=== PATIENT | male | born 1965 | race Caucasian/White ===

== ENCOUNTER 2019-01-25 09:12 | Day surgery (SDC) | payer BC, SELFPAY ==
--- NOTE | 2019-01-25 06:41 | W.COLOREPORT ---
Date of service: 01/25/19 Time of Service: 10:33 Colonoscopy Report Date of procedure: 01/25/19 Pre-op diagnosis general: Colon Cancer Screening Post-op diagnosis procedure note: other (ascending polyp and sigmoid polyp) Procedure: Colonoscopy with polypectomy by cold forceps and hot snare Surgeon: Kasey Galicia Anesthesia proc note operative: other (General/ Claudia Thompson, DIRECTOR INTEGRATED/ ASA 2) Estimated blood loss (mL): 5 Pathology: other (sigmoid polyp and ascending polyp) Complications: None Disposition: same day Indications: Mrs. Alcala is a pleasant 53 year old female who was seen in the office for a screening colonoscopy. Risks, benefits and complications have been reviewed. Complications include but are not limited to bleeding, pain, perforation, missed small lesion/polyp, sore throat, aspiration and adverse reaction to the medications. Questions were entertained and answered to their satisfaction and they wished to proceed. No guarantees were given or implied. Prep: Miralax/Dulcolax Procedure Start Time: :33 Procedure End Time: 11:25 Retraction Time: 34 minutes Findings: Large sigmoid polyp at 25 cm measuring about 1 cm Small ascending polyp Procedure Description: After informed consent was obtained the patient was taken to the procedure room and placed in a left decubitous position. Monitors were applied and a time out was done. The patients name, date of , procedure, allergies to medications and metal in their body was reviewed. The patient was then sedated. Once sedated and comfortable a rectal exam was done. External exam was normal. Internal exam revealed a normal sphincter tone and no palpable masses. The scope was then introduced and retro-flexed. No internal hemorrhoids were identified. The scope was then advanced to the cecum with difficulty due to a very tortuous colon. The TI and appendiceal orifice were identified. The prep was suboptimal in the right colon. 1 L of NS was used to wash the bile from the mucosa. The scope was then slowly retracted over 34 minutes back into the rectum. Polyps were removed in the ascending colon with cold forceps and in the sigmoid colon with hot snare. The polyp in the sigmoid colon was pedunculated and measured 1 cm. The mucosa was tattooed. The scope was removed and the patient was woken up and taken back to Same day surgery in stable condition. The patient tolerated the procedure well and there were no immediate complications. Follow up: Follow up pending final diagnoses.
--- NOTE | 2019-01-25 06:45 | COLE_ITS ---
Date of service: 01/25/19 Time of Service: 10:33 Colonoscopy Report Date of procedure: 01/25/19 Pre-op diagnosis general: Colon Cancer Screening Post-op diagnosis procedure note: other (ascending polyp and sigmoid polyp) Procedure: Colonoscopy with polypectomy by cold forceps and hot snare Surgeon: Kasey Galicia Anesthesia proc note operative: other (General/ Claudia Thompson, MERCHANDISE PLANNER/ ASA 2) Estimated blood loss (mL): 5 Pathology: other (sigmoid polyp and ascending polyp) Complications: None Disposition: same day Indications: Mrs. Alcala is a pleasant 53 year old female who was seen in the office for a screening colonoscopy. Risks, benefits and complications have been reviewed. Complications include but are not limited to bleeding, pain, perforation, missed small lesion/polyp, sore throat, aspiration and adverse enrique ction to the medications. Questions were entertained and answered to their satisfaction and they wished to proceed. No guarantees were given or implied. Prep: Miralax/Dulcolax Procedure Start Time: :33 Procedure End Time: 11:25 Retraction Time: 34 minutes Findings: Large sigmoid polyp at 25 cm measuring about 1 cm Small ascending polyp Procedure Description: After informed consent was obtained the patient was taken to the procedure room and placed in a left decubitous position. Monitors were applied and a time out was done. The patients name, date of , procedure, allergies to medications and metal in their body was reviewed. The patient was then sedated. Once sedated and comfortable a rectal exam was done. External exam was normal. Internal exam revealed a normal sphincter tone and no palpable masses. The scope was then introduced and retro-flexed. No internal hemorrhoids were identified. The scope was then advanced to the cecum with difficulty due to a very tortuous colon. The TI and appendiceal orifice were identified. The prep was suboptimal in the right colon. 1 L of NS was used to wash the bile from the mucosa. The scope was then slowly retracted over 34 minutes back into the rectum. Polyps were removed in the ascending colon with cold forceps and in the sigmoid colon with hot snare. The polyp in the sigmoid colon was pedunculated and measured 1 cm. The mucosa was tattooed. The scope was removed and the patient was woken up and taken back to Same day surgery in stable condition. The patient tolerated the procedure well and there were no immediate complica tions. Follow up: Follow up pending final diagnoses.
--- NOTE | 2019-01-25 06:45 | W.PM.DSUDISC ---
Discharge Plan Disposition Patient Disposition: HOME Condition: Good Discharge Details Reason For Visit: Colon Cancer Screening Attending Provider: Kasey Galicia Primary Care Provider: Nathaniel Cruz Home Meds and New Rx's Prescriptions: Continued naproxen sodium [Aleve] 220 MG tablet 220 mg PO PRN RF: 0 Discontinued bisacodyl [Dulcolax (bisacodyl)] 5 mg tablet,delayed release (DR/EC) 5 mg PO ONCE Qty: 4 RF: 0 polyethylene glycol 3350 17 gram/dose powder 255 g PO ONCE Qty: 255 RF: 0 Discharge Instructions Instructions: Colonoscopy (DC) Additional Instructions: Findings: 2 polyps Follow up: depends on final pathology results. I will call with results Please call if you develop: fevers >101.5 Nausea or Vomiting Abdominal pain that is not transient DAY SURGERY UNIT POST COLONOSCOPY INSTRUCTIONS 1. Because there will be medication in your system for the next 24 hours, you may feel a little sleepy. Your coordination will be affected. Therefore: a. Do not drive or operate dangerous equipment for 24 hours. b. Do not drink alcohol beverages for 24 hours (not even beer). c. Plan to go home and rest for the day. 2. Generally there are no restrictions on your activity after a day or so has gone by, but you may feel a bit fatigued for a few days. 3 After you arrive home you may have a light meal and return to a normal diet as you can tolerate it without feeling sick to your stomach. 4. After surgery, you may feel pain or discomfort. This should be only transient, but if it persists please contact your doctor. 5. If there are any questions regarding the findings of your procedure, please feel free to contact your doctor. 6. If you are unable to contact your doctor with a problem, contact the hospital at [phone]. 7. Continue all your regular medications unless directed otherwise. I understand the above instructions and have no questions. Signature of Patient or Responsible Adult Escort Date/Time Name of Responsible Adult Escort Signature of Nurse Date/Time Activity:: Activity as Tolerated Diet:: As Tolerated Discharge Orders Discharge Orders: Discharge Order (Routine); Ordered 01/25/19 Ordered By: Kasey Galicia DS: Diagnosis Discharge Diagnosis (1) S/P colonoscopy: Status: Acute (2) Colorectal polyps: Status: Acute
[2019-01-25 09:32] VITALS: BP 135/86; PULSE 84; RESP 16; TEMP 35.8; O2SAT 99
[2019-01-25] MEDS: Lactated Ringers 1,000 ML 80 ML IV (09:49)
--- NOTE | 2019-01-25 10:37 | BOWEL_PTH ---
PATIENT: Sobeida Alcala LOC: [facility] U#:[id number] AGE/SX: 53/M ROOM: RE01/25/[address]: Kasey Galicia MD : 1965 BED: DIS: 01/25/2019 SPEC #: [id number] RECD: 01/25/19 12:35 STATUS: AMY OLIVER #: [id number] KWAME: 01/25/19 10:[address]: Kasey Galicia DEPT: Surgical Specimen RECD BY: Tammy Flores ENTERED: 01/25/19 12:36 SP TYPE: Bowel OTHR DR: Nathaniel Cruz Tissues: 1 - BIOPSY BOWEL 2 - BIOPSY BOWEL Procedures: GROSS AND MICRO LEVEL 4 Comments: [id number]
[2019-01-25] MEDS: Endoscopic Tattoo 5 ML SYR IJ (10:42)
[2019-01-25 12:10] VITALS: BP 91/47; PULSE 54; RESP 16; TEMP 35.4; O2SAT 99
== END 2019-01-25 12:44 | disposition home or self-care (01) ==
PROVIDERS: PCP Internal Medicine; Visit Provider Surgery
PROC: 0DJD8ZZ Inspection of Lower Intestinal Tract, Via Natural or Artificial Opening Endoscopic (ICD-10-PCS; CPT 45378; principal; 2019-01-25 09:45)
DX: Z12.11 Encounter for screening for malignant neoplasm of colon (principal); D12.2 Benign neoplasm of ascending colon; D12.5 Benign neoplasm of sigmoid colon
CPT/HCPCS: 45385; 45380; 88305

== ENCOUNTER 2019-01-27 17:24 | Outpatient (REF) | payer BC, SELFPAY ==
[2019-01-27 21:41] LABS: Cholesterol 183 mg/dL (50-200); HDL Cholesterol 48 mg/dL (40-60); LDL CHOLESTEROL 109 mg/dL (<100); Triglyceride 169 mg/dL (30-150)
== END 2019-01-27 17:44 ==
LOC: NCHCN 17:24
PROVIDERS: PCP Internal Medicine; Visit Provider Internal Medicine
DX: Z00.00 Encounter for general adult medical examination without abnormal findings (principal); Z13.220 Encounter for screening for lipoid disorders
CPT/HCPCS: 80061; 83721

== ENCOUNTER 2021-04-05 04:19 | Outpatient (CLI) | payer BC, SELFPAY ==
--- NOTE | 2021-04-05 | DI.RAD_ITS ---
Exam(s) RF BARIUM SWALLOW EXAM: RF BARIUM SWALLOW CLINICAL HISTORY: ORAL PHASE DYSPHAGIA,R13.11 TECHNIQUE: 2D and realtime digital imaging was performed. CONTRAST MATERIAL: Oral barium Oral water soluble contrast was administered. COMPARISON: No exams were available for comparison FINDINGS: CHEST X-RAY: The heart and pulmonary vasculature are within normal limits. The lungs are clear. No pl eural effusion or pneumothorax is present. The bones are within normal limits fo the patient's age. Soft tissue lateral neck: The prevertebral soft tissues are unremarkable. Disc space narrowing and a nterior posterior osteophytes are seen at C6-C7 and to a lesser degree C5-C6. ESOPHAGRAM: The esophagus is patent with no evidence for erosions, fold thickening, strictures, or ma sses. With regards to the motility, there is a normal primary stripping wave. No tertiary contraction s were noted. There is a small hiatal hernia. No gastroesophageal reflux was identified during the e xamination. IMPRESSION: There is a small hiatal hernia. Otherwise unremarkable examination. No gastroesophageal reflux. RADIATION DOSE DELIVERED: roe Reynolds= mGy
[2021-04-05] MEDS: Barium Sulfate 60% W/V 355 ML BTL PO (09:56)
[2021-04-05] MEDS: Simethicone/Sod Bicarb/Cit Ac, 4 gram PACKET 1 PACKET PO (09:57)
== END 2021-04-05 04:39 ==
PROVIDERS: PCP Internal Medicine; Visit Provider Internal Medicine
DX: R13.11 Dysphagia, oral phase (principal); K44.9 Diaphragmatic hernia without obstruction or gangrene
CPT/HCPCS: 74221; J3490

== ENCOUNTER 2024-02-03 15:19 | Outpatient (REF) | payer MEDICAID, SELFPAY ==
[2024-02-03 15:41] LABS: Calculated LDL 123 mg/dL (<100); Cholesterol 182 mg/dL (<200); HDL Cholesterol 51 mg/dL (40-60); Triglyceride 44 mg/dL (<150)
[2024-02-04 09:47] LABS: PSA, Screening 0.5 ng/mL (<=3.5)
== END 2024-02-03 15:20 | disposition home or self-care (01) ==
LOC: NCHCN 15:19
PROVIDERS: PCP Internal Medicine; Visit Provider Family Medicine
DX: E78.5 Hyperlipidemia, unspecified (principal); Z12.5 Encounter for screening for malignant neoplasm of prostate
CPT/HCPCS: 80061; 84153

== ENCOUNTER 2024-05-16 06:55 | Day surgery (SDC) | payer MEDICAID, SELFPAY ==
--- NOTE | 2024-05-15 16:37 | W.PM.DSUDISC ---
Date of service: 05/16/24 Time of Service: 08:38 Discharge Plan Disposition Patient Disposition: Home Condition: Good Discharge Details Reason For Visit: screening colonoscopy Attending Provider: Michael Rankin Primary Care Provider: Nichol Taveras Home Meds and New Rx's Prescriptions: Continued lorazepam 0.5 mg tablet 0.5 mg PO DAILY PRN Rx Instructions: Take 1 tablet by mouth every six to eight hours for flights. Take first dose 30-60 mintues prior to first flight, start 08/15/22 Discontinued bisacodyl [Dulcolax (bisacodyl)] 5 mg tablet,delayed release (DR/EC) 5 mg PO ONCE Qty: 4 0RF Rx Instructions: Take per colonoscopy instructions provided by ordering providers office polyethylene glycol 3350 17 gram/dose powder 17 g PO ONCE Qty: 238 0RF Rx Instructions: Take per colonoscopy instructions provided by ordering providers office Discharge Instructions Instructions: Colon polyps Additional Instructions: Agatha, we were able to complete your colonoscopy today without any difficulty. Your prep was excellent, and I could see everything just fine. I did find and removed 2 small polyps today. These will both be sent off for testing. Once once we know the nature of the polyps, the office will be in touch regarding recommendations for the timing of your next colonoscopy. Incidentally, you also have tattoo inside from the previous colonoscopy. These are often times used to kamlesh areas if the absolute location is uncertain, or if there are concerns regarding the nature of something that is removed so that it can be analyzed in the future. I took several passes across this, and I did not see any signs of abnormal tissue here. If you need anything at all, or have any questions, please do not hesitate to call. 1. If tolerated, consume a soft, low fiber diet for 1-2 days. 2. Do not drive, drink alcohol, operate machinery, make critical decisions, or do activities that require coordination or balance for 24 hours. 3. Because air was put into your colon during the procedure, expelling air from your rectum (passing gas or farting) is normal. 4. You may not have a bowel movement for 1-3 days because of the colonoscopy prep. This is normal. 5. Go directly to the emergency room if you notice any of the following: Develop chills (warm to touch), or if you have a thermometer and your temperature is above 101 Difficulty breathing or difficultly swallowing Persistent vomiting Severe abdominal pain, other than gas cramps Severe chest pain Black, tarry stools Any bleeding ? exceeding one tablespoon 6. Call your physician if the site where your intravenous was started becomes red, swollen, painful, and warm to touch. 7. Your physician has reviewed your pre-procedure medications. Please continue to take those medications as previously ordered. You will be given specific information/education regarding any changes to your medications before leaving. Activity:: Activity as Tolerated Diet:: As Tolerated Discharge Orders Discharge Orders: Discharge Order (Routine); Ordered 05/15/24 Ordered By: Michael Rankin DS: Diagnosis Discharge Diagnosis (1) Encounter for screening colonoscopy: Status: Acute Asessment and Plan: Follow-up on polypectomy results
--- NOTE | 2024-05-15 16:39 | COLE_ITS ---
Date of service: 05/16/24 Time of Service: 08:39 Colonoscopy Report Date of procedure: 05/16/24 Pre-op diagnosis general: screening colonoscopy Post-op diagnosis procedure note: other (Colon polyps) Procedure: colonoscopy with polypectomy Surgeon: Michael Rankin Anesthesia Type: General:No Airway Estimated blood loss (mL): 5 Pathology: other (Less than 0.25 cm polyp at 130 cm, 0.25 cm polyp at 100 cm) Complications: None Disposition: same day Indications: Sobeida is a 59 year old male with a history of adenomatous polyps who needs his next screening colonoscopy Prep: Miralax/Dulcolax Procedure Start Time: 08:06 Procedure End Time: 08:29 Retraction Time: 15 Findings: Less than 0.25 cm polyp at 130 cm, 0.25 cm polyp at 100 cm; previous colonoscopic tattoo at 20 cm Procedure Description: After the induction of anesthesia, and with the patient in left lateral decubitus position, I began by performing an external anorectal exam.? Perineum and skin were normal, as was the anal verge.? There was no evidence of external hemorrhoids.? Next, I performed a digital rectal exam.? I did not appreciate any abnormal findings.? Next, I advanced a colonoscope into the rectal vault.? I performed retroflexion.? This was normal.? Using insufflation, I then advanced the colonoscope beyond the rectal folds and into the sigmoid colon before advancing towards the cecum.? The scope was noted to be in the cecum by identification of the ileocecal valve and appendiceal orifice.? I then began withdrawing the colonoscope using repeated irrigation as necessary for full evaluation of the colonic mucosa. Around 130 cm from the anal verge was a small polypoid area of tissue. Narrowband imaging was used to assist with analysis. It had some features consistent with polyp, therefore I elected to remove this. This was performed with cold forceps polypectomy without any issues. There was minimal bleeding. I found another polyp at 100 cm from the anus. This was about 0.25 cm. This was removed with cold snare polypectomy. Once the scope was withdrawn to the level of the rectum, great care was taken to examine portions of the rectal folds.? Finally, the scope was withdrawn and the patient was brought to the same-day surgery recovery unit as the anesthetic wore off. ?The findings and instructions were shared with the patient prior to discharge. [place] Bowel Prep [place] Bowel Prep Right Colon: 3 Left Colon: 3 Transverse Colon: 3 Total Score: 9
[2024-05-16 07:14] VITALS: BP 115/84; PULSE 88; RESP 16; TEMP 36.6; O2SAT 98
[2024-05-16] MEDS: Lactated Ringers 1,000 ML 80 ML IV (07:27)
--- NOTE | 2024-05-16 07:55 | W.ANESPRE ---
General Info Date of Service Date Performed: 05/16/24 Height: 6 ft 3 in Weight: 87.7 kg Body Mass Index (BMI): 24.1 Surgical Procedure: Operation Date: 05/16/24 08:20 Proposed Procedure Side Surgeon p Colonoscopy Michael Rankin MD Meds Allergies and Home Medications Allergies Allergy/AdvReac Type Severity Reaction Status Date / Time No Known Allergies Allergy Verified 05/16/24 07:13 Home Medication Medication Instructions Recorded lorazepam 0.5 mg tablet 0.5 mg PO DAILY PRN 02/22/24 Current Visit Medications: Current Medications Generic Name Dose Route Start Last Admin Trade Name Freq PRN Reason Stop Dose Admin Hyoscyamine Sulfate 0.125 mg 05/15/24 16:40 Hyoscyamine 0.125 Mg Sl/Oral/Chew SL 06/14/24 16:39 DIRECTED PRN Ringer's Solution 1,000 mls @ 80 mls/hr 05/16/24 06:00 05/16/24 07:27 IV 06/12/24 23:59 80 mls/hr INFUSION JACK Administration IV Miscellaneous Supplies 1 each 05/16/24 06:00 Iv Access IV 06/12/24 23:59 DIRECTED JACK Ondansetron HCl 4 mg 05/15/24 16:40 Ondansetron 4 Mg/2 Ml Vial IVP 06/14/24 16:39 Q4H PRN PRN Nausea / Vomiting Sodium Chloride 0 ml 05/16/24 06:00 Normal Saline Flush 10 Ml Syr IV 06/12/24 23:59 PRN PRN Sodium Chloride 0 ml 05/16/24 06:00 Normal Saline 10 Ml Vial IJ 06/12/24 23:59 DIRECTED PRN Sterile Water 0 ml 05/16/24 06:00 Water,Injection,Sterile 10 Ml Vial IJ 06/12/24 23:59 DIRECTED PRN PFSH Active Problems Active Problems: Problem Status Onset Code Colorectal polyps ~01/25/19 K63.5 S/P colonoscopy ~01/25/19 Z98.890 Encounter for screening colonoscopy Z12.11 History of urinary retention Z87.898 History of hydronephrosis Z87.448 Scrotal mass N50.9 Medical History Medical History Tubular adenoma of colon Oral phase dysphagia Hydrocele of testis Allergic rhinitis Tobacco Smoking/Tobacco Use Status: Never Alcohol Alcohol Intake: current Alcohol intake frequency: a few times a week Substance Use Substance use: Never Substance use type: does not use Vital Signs and Lab Results Vital Signs Most Recent Vital Signs in EMR: Most Recent Vital Signs Temp Pulse Resp BP Pulse Ox 36.6 C 88 16 115/84 98 05/16/24 07:14 05/16/24 07:14 05/16/24 07:14 05/16/24 07:14 05/16/24 07:14 Lab Results Blood Type / Crossmatch: No Data to Display Complete Blood Count: No Data to Display Complete Metabolic Panel: No Data to Display Liver Function Panel: No Data to Display Coagulation Panel: No Data to Display Cardiac Panel: No Data to Display Arterial Blood Gas: No Data to Display Venous Blood Gas: No Data to Display Pancreas Panel: No Data to Display Thyroid Panel: No Data to Display Infectious Disease: No Data to Display Blood Cultures: No Data to Display Toxicology Panel: No Data to Display Anesthesia Assessment and Plan Anesthesia History Personal History: No History of Anesthesia Complications Family History: No Family History of Anesthesia Complications Exercise Tolerance Exercise Tolerance: Metabolic Equivalents>4 Pertinent Negatives Pertinent Negatives: No Symptoms of GERD Cardiac & Pulmonary Exam Cardiac Exam: Normal S1/S2 Heart Sounds Pulmonary Exam: Clear Bilateral Breath Sounds Implantable Cardiac Device Does patient have a Pacemaker or an ICD?: No Airway Exam Known Difficult Airway: No Mallampati Class: 2 Mouth Opening: Normal (> 3cm) Thyromental Distance: Greater than 3 cm Neck Range of Motion: Full ROM Neck Circumference: Normal Teeth Condition: Normal Dentition ASA Classification ASA Score: ASA 2 Emergency Case?: No NPO Status NPO Status: NPO Clears >2 hours, Solids >8 hours Anesthesia Plan Resuscitation Status: Full Code Anesthesia Technique: General Anesthesia Airway Planned: Natural Airway Monitors Used: Standard Monitors
[2024-05-16 07:56] VITALS: BMI 24.1
--- NOTE | 2024-05-16 08:17 | BOWEL_PTH ---
PATIENT: Sobeida Alcala LOC: [facility] U#:[id number] AGE/SX: 59/M ROOM: RE05/16/[address]: Michael Rankin MD : 1965 BED: DIS: 05/16/2024 SPEC #: [id number] RECD: 05/16/24 12:46 STATUS: AMY RE #: [id number] KWAME: 05/16/24 08:[address]: Michael Rankin DEPT: Surgical Specimen RECD BY: Tammy Flores ENTERED: 05/16/24 12:48 SP TYPE: Bowel OTHR DR: Nichol Taveras Tissues: 1 - BIOPSY BOWEL 2 - BIOPSY BOWEL Procedures: GROSS AND MICRO LEVEL 4 Comments: [id number]
[2024-05-16 08:36] VITALS: BP 115/84; PULSE 88; RESP 16; TEMP 36.2; O2SAT 98
--- NOTE | 2024-05-16 08:43 | W.ANESPOSTOP ---
Postoperative Evaluation Date, Time and Location Date Performed: 05/16/24 Time Performed: 08:44 Patient Location: Day Surgery Unit Vital Signs Most Recent Imported Vital Signs: Most Recent Vital Signs Temp Pulse Resp BP Pulse Ox 36.6 C 88 16 115/84 98 05/16/24 07:14 05/16/24 07:14 05/16/24 07:14 05/16/24 07:14 05/16/24 07:14 Pain Score Most Recent Pain Score: Most Recent Pain Score Pain Level 0 05/16/24 07:14 Assessment Mental Status: Awake (Alert & Oriented to Patient Baseline) Airway and Respiratory Function: Patent airway with normal (patient baseline) respiratory exam Cardiovascular Function: Hemodynamically Stable Hydration Status: Adequately Hydrated Nausea & Vomiting: No Nausea or Vomiting Pain: Pt. Denies Any Pain Peripheral Nerve Block: Patient did not receive a nerve block
[2024-05-16 08:58] VITALS: BP 107/81; PULSE 61; RESP 16; TEMP 36.4; O2SAT 96
== END 2024-05-16 09:15 | disposition home or self-care (01) ==
LOC: SUR 06:56
PROVIDERS: PCP Family Medicine; Visit Provider Surgery
PROC: 0DJD8ZZ Inspection of Lower Intestinal Tract, Via Natural or Artificial Opening Endoscopic (ICD-10-PCS; CPT 45378; principal; 2024-05-16 08:15)
DX: Z12.11 Encounter for screening for malignant neoplasm of colon (principal); D12.3 Benign neoplasm of transverse colon
CPT/HCPCS: 45385; 45380; 88305; J2001; J2704

== ENCOUNTER 2024-09-23 12:39 | Outpatient (REF) | payer MEDICAID, SELFPAY ==
--- NOTE | 2024-09-23 07:45 | SKI_PTH ---
PATIENT: Sobeida Alcala LOC: [facility] U#:[id number] AGE/SX: 59/M ROOM: RE09/23/[address]: Nichol Taveras : 1965 BED: DIS: 09/23/2024 SPEC #: [id number] RECD: 09/26/24 13:03 STATUS: AMY RERosalee #: [id number] KWAME: 09/23/24 07:[address]: Nichol Taveras DEPT: Surgical Specimen RECD BY: Tammy Flores Tissues: 1 - SKIN CYST/TAG/DEBRIDEMENT Procedures: SKIN LEVEL 4 Comments: [id number]
== END 2024-09-23 12:40 | disposition home or self-care (01) ==
LOC: LBN 12:39
PROVIDERS: PCP Family Medicine; Visit Provider Family Medicine
DX: J34.89 Other specified disorders of nose and nasal sinuses (principal)
CPT/HCPCS: 88304; 88305

== ENCOUNTER 2025-04-18 10:08 | Outpatient (REF) | payer MEDICAID, SELFPAY ==
[2025-04-18 22:12] LABS: Anion Gap 7.8 mmol/L (3-11); BUN 13 mg/dL (7-18); CO2 27.2 mmol/L (21.0-32.0); Calcium 9.2 mg/dL (8.5-10.1); Calculated LDL 121 mg/dL (<100); Chloride 104 mmol/L (98-107); Cholesterol 207 mg/dL (<200); Estimated GFR 87.24 (mL/min/1.73m2); Glucose 110 mg/dL (74-106); HDL Cholesterol 57 mg/dL (>or=40); Magnesium 2.2 mg/dL (1.8-2.4); Potassium 4.2 mmol/L (3.5-5.1); Sodium 139 mmol/L (136-145); Triglyceride 148 mg/dL (<150)
[2025-04-19 19:34] LABS: PSA, Screening 0.7 ng/mL (<=3.5)
[2025-04-20 11:27] LABS: HIV-1/2 Ag & Ab Screen Negative (Negative)
[2025-04-20 11:47] LABS: Hepatitis C Ab w Rflx HCV PCR Negative (Negative)
== END 2025-04-18 10:09 | disposition home or self-care (01) ==
LOC: NCHCN 10:08
PROVIDERS: PCP Family Medicine; Visit Provider Family Medicine
DX: Z00.00 Encounter for general adult medical examination without abnormal findings (principal); E78.5 Hyperlipidemia, unspecified; Z12.5 Encounter for screening for malignant neoplasm of prostate; Z11.4 Encounter for screening for human immunodeficiency virus [HIV]; Z11.59 Encounter for screening for other viral diseases; Z51.81 Encounter for therapeutic drug level monitoring
CPT/HCPCS: 80048; 80061; 84153; 86803; 87389; 83735